=== PATIENT | female | born 1930 | race African-American/Black ===

== ENCOUNTER → 2016-09-26 | Outpatient (CLI) | payer MEDICARE ==
[2015-10-26 15:00] VITALS: BP 125/54
[~2016-09-26] MED LIST: ASPI325T11 PO; ATOR20TA58 PO; LEVO50TA PO; LEVO75TA PO; PANT20TA2 PO; POLY17PO29 PO; REGADENOSON 0.4 MG/5 ML DISP.SYRIN. IV ONE; TICA90TA PO
--- NOTE | 2016-09-26 13:40 | RAD ---
APPROVED REPORT Test Type: Pharmacological Stress Nurse/Tech: Bridgett Plaza R.N. Test Indications: chest tightness, CAD Cardiac History: stent, , Family history Medications: See Electronic Medical Record Medical History: See Electronic Medical Record Resting ECG: NSR Resting Heart Rate: 65 bpm Resting Blood Pressure: 144/72mmHg Pretest Chest Pain: No chest pain Nurse/Tech Notes S1S2, lungs sound clear Consent: The procedure was explained to the patient in lay terms. Informed consent was witnessed. Sang eout was entered into [employer]. History and Stress Test performed by Bridgett Plaza R.N. Pharm. Details Pharmacologic stress testing was performed using 0.4mg per 5ml of regadenoson given intravenously ove r 7-10 seconds. Stress Symptoms Dyspnea POST EXERCISE Reason for Termination: Infusion complete Max HR: 100 bpm Max Blood Pressure: 152/64mmHg Blood Pressure response to exercise: Normal blood pressure response during stress. Chest Pain: No. Arrhythmia: No. ST Change: No. INTERPRETATION Stress EKG Conclusion: No evidence of stress induced EKG changes with vasodilator stress. Imaging Protocol IMAGE PROTOCOL: Rest Tc-99m/stress Tc-99m 1 day Rest: Stress: Viability: Radiopharm.Tc99m [id number] Sestamibi Dose11.4mCi 34.1mCi Duration 15min. 10min. Img Date 09/26/2016 09/26/2016 Inj-Img [id number]. 60min. Rest Admin Site:IV - Right AntecubitalAdministrator:RT Rojelio (R)(N) Stress Admin Site: IV - Right AntecubitalAdministrator: RT Rojelio (R)(N) STRESS DATA End Diast. Vol.25.0mlAv. Heart Rate76.0bpm End Syst. Vol.6.0mlCO Index BSA1.5L/min Myocardial Mass60.0gEject. Pmzqqwph56.0% Stress Rates Pk. Fill Rate4.73EDV/secLVtime Pk. Fill 215.92msec Pk. Empty Rate6.41ESV/secLVtime Pk. Eject90.43msec 04/12 Pk. Fill0.83EDV/sec Stress Scores Regional WT1.00Summed WT10.00 Regional WM0.00Summed WM12.00 LV Perfusion Normal perfusion at stress. Wall Motion Normal wall motion on post stress images. LV Perf. Quant 17 Seg. SSS4.00 17 Seg. SRS16.00 17 Seg. SDS4.00 Stress Defect Extent (% LAD)0.00Rest Defect Extent (% LAD)30.60Rev. Defect Extent (% LAD)0.00 Stress Defect Extent (% LCX) 31.30Rest Defect Extent (% LCX)26.30Rev. Defect Extent (% LCX)31.30 Stress Defect Extent (% RCA)0.00Rest Defect Extent (% RCA)8.90Rev. Defect Extent (% RCA)0.00 Stress Defect Extent (% RUPINDER)6.30Rest Defect Extent (% RUPINDER)31.70Rev. Defect Extent (% RUPINDER)6.30 Other Information Quality:Poor Risk Assessment: Low Risk Conclusion 1. Poor quality study with significant motion artifact and subdiaphragmatic artifact. 2. Normal perfusion at stress. 3. Rest images not accurately interpretable. 4. Normal EF at > 65% 5. Low risk study.
== END | disposition home or self-care (01) ==
LOC: NM 08:00
PROVIDERS: ATTEND Specialist
DX: I25.10 Atherosclerotic heart disease of native coronary artery without angina pectoris (principal); R06.02 Shortness of breath; Z86.79 Personal history of other diseases of the circulatory system; Z79.01 Long term (current) use of anticoagulants
CPT/HCPCS: 78452; 93017; 96374; 96375; 96376; A9500; J2785

== ENCOUNTER → 2021-03-31 | Outpatient (CLI) | payer MEDICARE ==
[2015-10-26 15:00] VITALS: BP 125/54
[~2021-03-31] MED LIST changes: -LEVO75TA PO; +LEVO75TA90 PO; -REGADENOSON 0.4 MG/5 ML DISP.SYRIN. IV ONE
--- NOTE | 2021-03-31 13:49 | KCIC ---
EXAM: Cervical spine, 5 views. HISTORY: Radiculopathy. COMPARISON: None. FINDINGS: 5 views of the cervical spine are obtained. There is cervical kyphosis centered at C4. Ther e is 3 mm anterolisthesis of C3 on C4. There is degenerative endplate remodeling with disc space narr owing and osteophytosis at C4-C7. There is multilevel facet arthropathy. There is multilevel foramina l stenosis. IMPRESSION: 1. Degenerative change primarily at C4-C7. 2. No acute osseous finding. Electronically signed by: Selina Hardy MD (03/31/2021 1:47 PM) [id number]
== END ==
LOC: KCIC 13:10
PROVIDERS: ATTEND Family Medicine
DX: M47.22 Other spondylosis with radiculopathy, cervical region (principal); M48.02 Spinal stenosis, cervical region; M48.8X2 Other specified spondylopathies, cervical region; M40.292 Other kyphosis, cervical region; M25.78 Osteophyte, vertebrae
CPT/HCPCS: 72050